=== PATIENT | female | born 1980 | race Caucasian/White ===

== ENCOUNTER 2020-04-30 06:36 | Emergency (ER) | payer BC, OTHER ==
[~2020-04-30] VITALS: Ht 149.9 cm; Wt 83.0 kg
[2020-04-30] MEDS ORDERED: SODIUM CHLORIDE 0.9% 1000ML 1,000 ML IV STA (06:53)
[2020-04-30] MEDS ORDERED: MORPHINE SULFATE 2 MG/ML SYR 1ML IV STA (06:53)
[2020-04-30] MEDS ORDERED: ONDANSETRON HCL INJ 2MG/ML 2ML 2 MG/ML VIAL IV STA (06:53)
[2020-04-30 07:06] LABS: BASOPHILS % 0.3 % (0.0-1.0); EOSINOPHILS % 0.1 % (0.0-6.0); HEMATOCRIT 42.5 % (34.2-44.1); HEMOGLOBIN 13.7 g/dL (12.0-16.0); LYMPHOCYTES # (AUTO) 1.3 (1.0-3.2); MEAN CORPUSCULAR HEMOGLOBIN 28.8 pg (28-32); MEAN CORPUSCULAR HGB CONC 32.2 g/dL (31-35); MEAN CORPUSCULAR VOLUME 89.3 fL (81-99); MONOCYTES # (AUTO) 0.5 (0.2-0.8); NEUTROPHILS # (AUTO) 8.1 (2.1-6.9); NEUTROPHILS % 81.2 % (38.7-80.0); PLATELET COUNT 260 x10e3/uL (140-360); RED BLOOD COUNT 4.76 x10e6/uL (3.6-5.1); RED CELL DISTRIBUTION WIDTH 12.9 % (11.7-14.4)
--- OUTSIDE RECORDS SUMMARY | 2020-04-30 07:10 | XMS REPORT | Encounter Summary ---
Author Organization Unknown Address [address] [place] [address] Phone [phone] Care Team Providers Care Military Technician Name Role Phone Dr. Gladys Finnegan 3 [phone] Reason for Visit Annual physical - female Instructions 1. Adult health examination lipid panel, serum CMP, serum or plasma CBC w/ auto diff 2. Immunization Adacel (Tdap Adolesn/Adult)(PF)2 Lf-(2 .5-5-3-5)-5 Lf/0.5 mL IM syringe 3. Body mass index 30+ - obesity body mass index: care instructions learning about healthy weight 4. Mild recurrent major depression Trintellix 5 mg tablet Discussion Note: None recorded. Plan of Care Reminders Provider Appointments Return to Office on or around 04/26/2020 Gladys Finnegan MD Lab Lipid Panel, Serum 03/27/2020 [facility] Medic [facility] - Laboratory CMP, Serum or Plasma 03/27/2020 [facility] Med ical - Laboratory CBC W/ Auto Diff 03/27/2020 [facility] Medical - Laboratory Referral None recorded. Procedures None recorded. Surgeries None recorded. Imaging None recorded. Medications Name Start Date amitriptyline 25 mg tablet Take 1 tablet every day by oral route. gabapentin 300 mg capsule Take 1 capsule 3 times a day by oral route. Premarin 0.625 mg daily Qsymia 3.75 mg-23 mg capsule, extended r elease TAKE 1 CAPSULE BY MOUTH EVERY DAY sumatriptan 25 mg tablet take 1 tablet for migraine once a day. may take 2nd tablet if still hurting after 2 hours tramadol 50 mg tablet every 6 hours by oral route. 09/19/2017 Trintellix 5 mg tablet Take 1 tablet every day by oral route. Medications Administered None recorded. Vitals Height Weight BMI Blood Pressure 4 ft 11 in 189.4 lbs 38.3 kg/m2 116/72 mm[Hg] Results Lab Results None recorded. Allergies Code Code System Name Reaction Severity Status Onset RxNorm Azithromycin Active Penicillins Active 73249 RxNorm Tizanidine Active Problems Name Status Onset Date Source Nerve Root Disorder Active External Ankle Pain Active External Plantar Fasciitis Active External Osteochondritis Dissecans of the Talus Active External Sprain of Ankle Active External Sprain of Calcaneofibular Ligament Active External Right Tarsal Tunnel Syndrome Active Ext ernal Procedures Date Name Performed by 09/29/2018 Orthopedic Surgery Information not avai lable 09/29/2014 Hysterectomy (Total) Information not holland ilable 09/29/2014 Tubal Ligation Information not avai lable 09/29/2008 Caesarean Section Information not avai lable 09/29/2006 Caesarean Section Information not avai lable Colonoscopy Information not avai lable Vaccine List Vaccine Type Tdap 03/27/20200.5 mL Social History Tobacco Smoking Status Never Smoker Past Encounters 03/27/2020 Adult Health Examination; Immunization; Body Mass Index 30+ - Obesity; Mild Recurrent Major Depression Gladys Finnegan MD: [address] [facility] , [address], [place] [address], Ph. History of Present Illness Note:here for <div>
</div><div>WWE - hysterectomy

mammogram - UTD
< br>last eye < 1 yr

last dental < 1 yr

last Tdap - need
< br>exercise- regular

diet- careful- less red meat, more veggies/fish
< br>feeling more depressed lately - cannot tolerate higher dose of elavil. phq 9 answered and reviewed </div> Review of Systems Comprehensive General Adult ROS Reported By: Patient Constitutional: Constitutional: no fever, no significant weight gain, no significant weight loss Cardiovascular: Cardiovascular: no chest roman n, no shortness of breath when walking, no palpitations, no lightheadedness Respiratory: Respiratory: no cough, no wh eezing, no shortness of breath Genitourinary: Genitourinary: no incontinen ce, no difficulty urinating; vaginal dryness, pelvic pain Musculoskeletal: Musculoskeletal: no muscle a ches, no muscle weakness, no arthralgias/joint pain Integumentary: Skin: no abnormal mole, no j aundice, no rashes Neurologic: Neurologic: no weakness, no numbness, no dizziness, no headaches Psychiatric: Psych: no anxiety, depressio n, sleep disturbances Allergic/Immunologic: Allergy/Immunologic: no runn y nose, no sinus pressure, no itching, no hives, no frequent sneezing Physical Exam General Adult Exam (Female) Reported By: Patient Constitutional: General Appearance: healthy- appearing, well-nourished, well-developed Psychiatric: Insight: good judgement. Men yoni Status: active and alert. Orientation: to time, to place, to person. Memory: recent memory normal, remote memory normal Head: Head: normocephalic, atrauma tic Eyes: Lids and Conjunctivae: no di scharge. Pupils: PERRLA. Corneas: grossly intact. EOM: EOMI. Sclerae: non-icteric ENMT: Ears: no lesions on external ear. Hearing: no hearing loss. Nose: no lesions on external nose, nares patent. Lips, Teeth, and Gums: no mouth or lip ulcers. Oropharynx: moist mucous membranes Neck: Neck: supple, trachea midlin e. Thyroid: no enlargement Lungs: Respiratory effort: no dyspn ea. Auscultation: breath sounds normal Cardiovascular: Heart Auscultation: RRR, nor mal S1, normal S2, no murmurs. Pulses including femoral / pedal: normal throughout Abdomen: Bowel Sounds: normal. Inspec tion and Palpation: soft, non-distended, no tenderness Musculoskeletal:: Motor Strength and Tone: nor mal motor strength, normal tone. Joints, Bones, and Muscles: normal movement of all extremities Neurologic: Gait and Station: normal gai t. Cranial Nerves: grossly intact. Sensation: grossly intact Skin: Inspection and palpation: no rash, no lesions
--- OUTSIDE RECORDS SUMMARY | 2020-04-30 07:10 | XMS REPORT | Summary of Care ---
Author Author [facility] Address [address] [place] [address] Phone Unavailable Care Team Providers Care Superintendent Radio Communications Name Role Phone PERRY KELLY M.D. Unavailable Unavailable Perry Kelly MD Unavailable Unavailable Unavailable Unavailable Functional Status Name Dates Details Functional status health issues are not documented Status: Name Dates Details Cognitive status health issues are not d ocumented Status: Problems Name Dates Details Osteochondritis dissecans of right talus (732.7, M93.271) Status: Active Right ankle pain (719.47, M25.571) Status: Active Plantar fasciitis, right (728.71, M72.2) Status: Active Tarsal tunnel syndrome of right side (35 5.5, G57.51) Status: Active Sprain of calcaneofibular ligament of ri ght ankle, initial encounter (845.02, S93.411A) Status: Active Sprain of anterior talofibular ligament of right ankle, initial encounter (845.09, S93.491A) Status: Active Medications Name Dates Details Meloxicam 15 MG Oral Tablet TAKE 1 TABLET DAILY. Quantity: 30 GAUVAIN M.D., PERRY * Start : 28-Jul-2017 Active Cephalexin 500 MG Oral Capsule TAKE 1 CAPSULE 3 TIMES DAILY UNTIL GONE. * Quantity: 15 Refills: 0 GAUVAIN Emelia.Joan., PERRY * Start : 28-Oct-2018 Active traMADol HCl - 50 MG Oral Tablet TAKE 2 TABLETS EVERY 6 HOURS. * Quantity: 60 Refills: 1 GAUVAIN M.D., PERRY * Start : 28-Oct-2018 Active Ondansetron HCl - 8 MG Oral Tablet TAKE 1 TABLET EVERY 8 HOURS * Quantity: 15 Refills: 0 GAUVAIN M.D., PERRY * Start : 28-Oct-2018 Active Meloxicam 15 MG Oral Tablet TAKE 1 TABLET DAILY. * Quantity: 30 Refills: 2 GAUVAIN M.D., PERRY * Start : 16-Aug-2019 Active traMADol HCl - 50 MG Oral Tablet TAKE 2 TABLETS EVERY 6 HOURS. * Quantity: 60 Refills: 1 PERRY KELLY M.D. * Start : 19-Sep-2017 Active Meloxicam 15 MG Oral Tablet TAKE 1 TABLET DAILY. * Quantity: 30 Refills: 1 ABIGAIL Lewis PERRY * Start : 19-Sep-2017 Active Allergies and Adverse Reactions Name Dates Details Penicillins (Allergy) Status: Active Procedures Procedure Dates Details Procedures not documented Immunization Name Dates Details Immunizations not documented Social History Name Dates Details Unknown if ever smoked Vital Signs Date Test Result Details No Known Vitals to report Results Date Description Value Details Results not documented Plan of Care Name Dates Details Planned Observations Planned Goals not documented Planned Encounters Appointment; PERRY KELLY M.D. On: 15-Oct-2019 9:15 Instructions Name Dates Details Instructions not documented Encounters Appointment; PERRY KELLY M.D. Encounter Diagnosis: Problem not documented On: 21-Nov-2017 10:45 Appointment; PERRY KELLY M.D. Encounter Diagnosis: Problem not documented On: 19-Dec-2017 10:30 Appointment; PERRY KELLY M.D. Encounter Diagnosis: Problem not documented On: 05-Oct-2018 9:15 Appointment; PERRY KELLY M.D. Encounter Diagnosis: Problem not documented On: 19-Oct-2018 10:15 Appointment; PERRY KELLY M.D. Encounter Diagnosis: Problem not documented On: 29-Oct-2018 9:00 Appointment; PERRY KELLY M.D. Encounter Diagnosis: Problem not documented On: 13-Nov-2018 10:45 Appointment; PERRY KELLY M.D. Encounter Diagnosis: Problem not documented On: 04-Dec-2018 14:45 Appointment; PERRY KELLY M.D. Encounter Diagnosis: Problem not documented On: 01-Jan-2019 10:00 Appointment; PERRY KELLY M.D. Encounter Diagnosis: Problem not documented On: 31-Mar-2019 14:15 Appointment; PERRY KELLY M.D. Encounter Diagnosis: Problem not documented On: 02-Aug-2019 8:45 Appointment; PERRY KELLY M.D. Encounter Diagnosis: Problem not documented On: 16-Aug-2019 8:45 Appointment; PERRY KELLY M.D. Encounter Diagnosis: Problem not documented On: 27-Sep-2019 8:30
--- OUTSIDE RECORDS SUMMARY | 2020-04-30 07:10 | XMS REPORT | Encounter Summary ---
Author Organization Unknown Address [address] [place] [address] Phone [phone] Care Team Providers Care License And Permit Specialist Name Role Phone Dr. Gladys Finnegan 3 [phone] Reason for Visit Left breast problems; Telemedicine Visit Instructions 1. Lump in left breast US, breast, unilateral MAMMO, diagnostic, digital, bilateral 2. Chronic pelvic pain of female amitriptyline 50 mg tablet gabapentin 300 mg capsule 3. Migraine sumatriptan 25 mg tablet 4. Morbid obesity Discussion Note: None recorded. Patient educational handouts: No information available. Plan of Care Reminders Provider Appointments Est CPX 03/27/2020 7:30AM Gladys persaud MD Lab None recorded. Referral None recorded. Procedures None recorded. Surgeries None recorded. Imaging US, Breast, Unilateral 02/24/2020 [facility] MAMMO, Diagnostic, Digital, Bilateral 02/24/2020 [facility] Medications Name Start Date amitriptyline 25mg qhs amitriptyline 50 mg tablet Take 1 tablet every day by oral route. gabapentin 100mg tid gabapentin 300 mg capsule Take 1 capsule 3 times a day by oral route. Premarin 0.625 mg daily Qsymia 3.75 mg-23 mg capsule, extended r elease TAKE 1 CAPSULE BY MOUTH EVERY DAY sumatriptan 25 mg tablet take 1 tablet for migraine once a day. may take 2nd tablet if still hurting after 2 hours tramadol prn Medications Administered None recorded. Vitals Height 4 ft 11 in Results Lab Results None recorded. Allergies Code Code System Name Reaction Severity Status Onset 43433 RxNorm Azithromycin Active Penicillins Active 98740 RxNorm Tizanidine Active Problems None recorded. Procedures Date Name Performed by 09/29/2018 Orthopedic Surgery Information not avai lable 09/29/2014 Hysterectomy (Total) Information not holland ilable 09/29/2014 Tubal Ligation Information not avai lable 09/29/2008 Caesarean Section Information not avai lable 09/29/2006 Caesarean Section Information not avai lable Colonoscopy Information not avai lable 02/24/2020 US, Breast, Unilateral [facility] [address] [place] [address] (Work Place) 02/24/2020 MAMMO, Diagnostic, Digital, Bilateral [facility] [address] [place] [address] (Work Place) Vaccine List None recorded. Social History Tobacco Smoking Status Never Smoker Past Encounters 02/24/2020 Lump in Left Breast; Chronic Pelvic Pain of Female; Migraine; Morbid Obesity Gladys Finnegan MD: [address], [address], [place] [address], Ph. History of Present Illness Breast Pain Reported By: Patient HPI: Location: left. Onset/Timing : 1-2 weeks. Duration: constant. Quality: throbbing. Severity: moderate. Context: family history of breast cancer; fathers mother. Modifying Factors: touch. Associated Symptoms: no fever, no chills, no skin redness, no nipple discharge, no arm swelling, no chest pain, sore nipples, arm pain, breast lump Notes: she is on HRT after hysterec vipul and oophorectomy 5 yrs ago Note:I confirm that I received verbal consent from the patient for the virtual visit.
This telemedicine encounter was performed using live {{video and audio*|audio only}}.
<b>(for audio only)</b> Total time spent with patient: {{ }} minutes.

<div>1. she has a hx of chronic pelvic pain after she had total hysterectomy and salphingo ophorectomy. i started her on gabapentin and elavil and it has help. she needs refill of med
</div><div>
</div><div>2. she has a hx of migraines and has had 4-5 episodes in the past 2 months. she has some stress from school. elavil and imitrex has helped</div><div>
</div><div> 3. i started her on qsymia for weight loss - she has not weighed herself and bec of her foot pain has not exercised much. just started med recently but feels go od and has not side effects
</div> Review of Systems Comprehensive General Adult [...] no hives, no frequent sneezing Physical Exam Telemedicine/Virtual Visit Reported By: Patient"
--- OUTSIDE RECORDS SUMMARY | 2020-04-30 07:10 | XMS REPORT | Encounter Summary ---
Author Organization Unknown Address [address] [place] [address] Phone [phone] Care Team Providers Care Frame Straightener Name Role Phone Dr. Gladys Finnegan 3 [phone] Reason for Visit headaches Instructions 1. Chronic pelvic pain of female gabapentin 300 mg capsule amitriptyline 50 mg tablet 2. Migraine sumatriptan 25 mg tablet 3. Body mass index 30+ - obesity body mass index: care instructions learning about healthy weight Qsymia 3.75 mg-23 mg capsule, extended release 4. Moderate recurrent major depression depression treatment: care instruction s recovering from depression: care instr uctions 5. Vaginal dryness estradiol 0.01% (0.1 mg/gram) vaginal cream Discussion Note: None recorded. Plan of Care Reminders Provider Appointments Est CPX 01/10/2020 8:15AM Gladys persaud MD Return to Office on or around 01/13/2020 Gladys Finnegan MD Lab None recorded. Referral None recorded. Procedures None recorded. Surgeries None recorded. Imaging None recorded. Medications Name Start Date amitriptyline 25mg qhs amitriptyline 50 mg tablet Take 1 tablet every day by oral route. diclofenac sodium dr 75 mg tbec prn estradiol 0.01% (0.1 mg/gram) vaginal cr eam insert 1 gm per vagina 3x a wk at bedtime gabapentin 100mg tid gabapentin 300 mg capsule Take 1 capsule 3 times a day by oral route. Premarin Qsymia 3.75 mg-23 mg capsule, extended r elease Take 1 capsule every day by oral route. sumatriptan sumatriptan 25 mg tablet take 1 tablet for migraine once a day. may take 2nd tablet if still hurting after 2 hours tramadol prn Medications Administered None recorded. Vitals Height Weight BMI Blood Pressure 4 ft 11 in 189 lbs 38.2 kg/m2 119/79 mm[Hg] Results Lab Results None recorded. Allergies Code Code System Name Reaction Severity Status Onset 82308 RxNorm Azithromycin Active Penicillins Active 00577 RxNorm Tizanidine Active Problems None recorded. Procedures Date Name Performed by 09/29/2018 Orthopedic Surgery Information not avai lable 09/29/2014 Hysterectomy (Partial) Information not a vailable 09/29/2014 Tubal Ligation Information not avai lable 09/29/2008 Caesarean Section Information not avai lable 09/29/2006 Caesarean Section Information not avai lable Vaccine List None recorded. Social History Tobacco Smoking Status Never Smoker Past Encounters 12/13/2019 Chronic Pelvic Pain of Female; Migraine; Body Mass Index 30+ - Obesity; Moderate Recurrent Major Depression; Vaginal Dryness Gladys Finnegan MD: [address] [place] [address] , [address], [place] [address], Ph. History of Present Illness Note:here as a new patient but my old patient from my previous practice<div>
</div><div>1. she has a hx of chronic pelvic pain after she had total hysterectomy and salphingo ophorectomy. i started her on gabapentin and elavil and it has help. he saw a educational resource center teacher since last time i saw her and they told her she has some pelvic wall dysfunction. no records available. </div><div>
</div>< div>2. she has a hx of migraines and dr. morales gave her imitrex and it helped. she needs a refill. she has been getting them more frequently now too bec of stress at home</div><div>
</div><div>3. her depression is worse. she has foot surgery and still hurting and her works out of town. she is on elavil but still not sleeping well. phq 9 reviewed </div><div>
</div><div>4. since her hysterectomy and ovary removal - she has been on premarin but still experiencing vaginal dryness. she is UTD with her [employer]/pelvic exam</div><div>
</div><div>5. i started her on phentermine for weight loss - she was lost to f/up due to insurance. she wants to try it again but wants to try qsymia. she tried to watch what she is eating but not much exercise</div> Review of Systems Comprehensive General Adult ROS [...] Memory: recent memory normal, remote memory normal Neck: Neck: supple, trachea midlin e. Thyroid: no enlargement Lungs: Respiratory effort: no dyspn ea. Auscultation: breath sounds normal Cardiovascular: Heart Auscultation: RRR, nor mal S1, normal S2, no murmurs. Pulses including femoral / pedal: normal throughout Musculoskeletal:: Motor Strength and Tone: nor mal motor strength, normal tone. Joints, Bones, and Muscles: normal movement of all extremities Neurologic: Gait and Station: normal gai t. Cranial Nerves: grossly intact. Sensation: grossly intact Skin: Inspection and palpation: no rash, no lesions
--- OUTSIDE RECORDS SUMMARY | 2020-04-30 07:10 | XMS REPORT | Summary of Care ---
Author Author [facility] Address [address] [place] [address] Phone Unavailable Care Team Providers Care Tool Drawing Checker Name Role Phone PERRY KELLY M.D. Unavailable Unavailable Perry Kelly MD Unavailable Unavailable Unavailable Unavailable Functional Status Name Dates Details Functional status health issues are not documented Status: Name Dates Details Cognitive status health issues are not d ocumented Status: Problems Name Dates Details Sprain of anterior talofibular ligament of right ankle, initial encounter (845.09, S93.491A) Status: Active Sprain of calcaneofibular ligament of ri ght ankle, initial encounter (845.02, S93.411A) Status: Active Osteochondritis dissecans of right talus (732.7, M93.271) Status: Active Right ankle pain (719.47, M25.571) Status: Active Plantar fasciitis, right (728.71, M72.2) Status: Active Tarsal tunnel syndrome of right side (35 5.5, G57.51) Status: Active Radiculopathy (729.2, M54.10) Status: Active Medications Name Dates Details Meloxicam 15 MG Oral Tablet TAKE 1 TABLET DAILY. Quantity: 30 GAUVAIN M.D., PERRY * Start : 28-Jul-2017 Active Meloxicam 15 MG Oral Tablet TAKE 1 TABLET DAILY. * Quantity: 30 Refills: 1 GAUVAIN M.D., PERRY * Start : 19-Sep-2017 Active traMADol HCl - 50 MG Oral Tablet TAKE 2 TABLETS EVERY 6 HOURS. * Quantity: 60 Refills: 1 GAUVAIN M.D., PERRY * Start : 19-Sep-2017 Active Meloxicam 15 MG Oral Tablet TAKE 1 TABLET DAILY. * Quantity: 30 Refills: 2 GAUVAIN M.D., PERRY * Start : 16-Aug-2019 Active Ondansetron HCl - 8 MG Oral Tablet TAKE 1 TABLET EVERY 8 HOURS * Quantity: 15 Refills: 0 GAUVAIN M.D.KRISTAPERRY * Start : 28-Oct-2018 Active traMADol HCl - 50 MG Oral Tablet TAKE 2 TABLETS EVERY 6 HOURS. * Quantity: 60 Refills: 1 ABIGAIL LewisKRISTAPERRY * Start : 28-Oct-2018 Active Cephalexin 500 MG Oral Capsule TAKE 1 CAPSULE 3 TIMES DAILY UNTIL GONE. * Quantity: 15 Refills: 0 ABIGAIL LewisKRISTAPERRY * Start : 28-Oct-2018 Active Allergies and Adverse Reactions Name Dates Details Penicillins (Allergy) Status: Active Procedures Procedure Dates Details Procedures not documented Immunization Name Dates Details Immunizations not documented Social History Name Dates Details Tobacco smoking consumption unknown (finding) Vital Signs Date Test Result Details No Known Vitals to report Results Date Description Value Details Results not documented Plan of Care Name Dates Details Planned Observations Planned Goals not documented Instructions Name Dates Details Instructions not documented [...] Diagnosis: Problem not documented On: 27-Sep-2019 8:30 Appointment; PERRY KELLY M.D. Encounter Diagnosis: Problem not documented On: 20-Oct-2019 8:30
--- OUTSIDE RECORDS SUMMARY | 2020-04-30 07:10 | XMS REPORT | Summary of Care ---
Author Author ABIGAIL Lewis, CLAUDE GOEL Organization Unknown Address Unknown Phone Unavailable Care Team Providers Care Braid Folder Name Role Phone PERRY KELLY M.D. Unavailable [...] M.D., PERRY * Start : 19-Sep-2017 Active Cephalexin 500 MG Oral Capsule TAKE 1 CAPSULE 3 TIMES DAILY UNTIL GONE. * Quantity: 15 Refills: 0 GAUVAIN M.D., PERRY * Start : 28-Oct-2018 Active traMADol HCl - 50 MG Oral Tablet TAKE 2 TABLETS EVERY 6 HOURS. * Quantity: 60 Refills: 1 GAUVAIN M.D.PERRY * Start : 28-Oct-2018 Active Ondansetron HCl - 8 MG Oral Tablet TAKE 1 TABLET EVERY 8 HOURS * Quantity: 15 Refills: 0 ABIGAIL LewisPERRY * Start : 28-Oct-2018 Active Meloxicam 15 MG Oral Tablet TAKE 1 TABLET DAILY. * Quantity: 30 Refills: 2 ABIGAIL LewisPERRY * Start : 16-Aug-2019 Active Allergies and Adverse Reactions Name Dates [...] Observations Planned Goals not documented Planned Encounters Sql Database Programmer Interventions Provided Medication Changes* Meloxicam 15 MG Oral Tablet - Start Instructions Name Dates Details Instructions not documented [...]
--- OUTSIDE RECORDS SUMMARY | 2020-04-30 07:10 | XMS REPORT | Continuity of Care Document ---
Author Author 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 [facility] Ankle pain Ankle Pain Problem Active [facility] Plantar fasciitis Plantar Fasciitis Problem Active [facility] Osteochondritis dissecans of the talus Osteochondritis Disse cans of the Talus Problem Active [facility] Sprain of ankle Sprain of Ankle Problem Active [facility] Sprain of calcaneofibular ligament Sprain of Calcaneofibular Lig ament Problem Active [facility] Right tarsal tunnel syndrome Right Tarsal Tunnel Syndrome Problem Active [facility] Sprain of anterior talofibular ligament of right ankle , initial encounter Sprain of anterior talofibular ligament of right ankle, initial encounter Problem Active [facility] Sprain of calcaneofibular ligament of right ankle, ini tial encounter Sprain of calcaneofibular ligament of right ankle, initial encounter Problem Active [facility] Osteochondritis dissecans of right talus Osteochondrit is dissecans of right talus Problem Active [facility] Right ankle pain Right ankle pain Problem Active [facility] Plantar fasciitis, right Plantar fasciitis, right Problem Active [facility] Tarsal tunnel syndrome of right side Tarsal tunnel syndrome of right side Problem Active [facility] Radiculopathy Radiculopathy Problem Active [facility] Allergies, Adverse Reactions, Alerts Allergy Name Allergy Type Status Severity Reaction(s) Onset Date Inacti ve Date Treating Clinician Comments Source Penicillins DA Active [place] 2016-04-04 00:00:00 [facility] azithromycin DA Active [place] 2016-04-04 00:00:00 [facility] tizanidine DA Active [place] 2016-04-04 00:00:00 [facility] Azithromycin Allergy to substance Active [facility] PENICILLINS Allergy to substance Active [facility] Tizanidine Allergy to substance Active [facility] Penicillins Allergy to drug (finding) Active [facility] Social History Smoking Status Start Date Stop Date Source Never Smoker [facility] ractice Medications Ordered Medication Name Filled Medication Name Start Date Stop Da te Current Medication? Ordering Clinician Indication Dosage Frequency Signature (SIG) Comments Components Source Meloxicam 15 MG Oral Tablet Meloxicam 15 MG Oral Tablet 2019-08-16 00:00:00 Yes RUKHSANA HAYES M.D. 1 QD TAKE 1 TABLET DAILY. [facility] Cephalexin 500 MG Oral Capsule Cephalexin 500 MG Oral Capsul e 2018-10-28 00:00:00 Yes RUKHSANA HAYES M.D. Q0.3333D TAKE 1 CAPSULE 3 TIMES DAILY UNTIL GONE. [facility] traMADol HCl - 50 MG Oral Tablet traMADol HCl - 50 MG Oral T ablet 2018-10-28 00:00:00 Yes RUKHSANA HAYES M.D. Q6H TAKE 2 TABLETS EVERY 6 HOURS. [facility] Ondansetron HCl - 8 MG Oral Tablet Ondansetron HCl - 8 MG Or al Tablet 2018-10-28 00:00:00 Yes RUKHSANA HAYES M.D. 1 Q8H TAKE 1 TABLET E VERY 8 HOURS [facility] tramadol 50 mg tablet every 6 hours by oral route. tr amadol 50 mg tablet every 6 hours by oral route. 2017-09-19 00:00:00 No Q6H tramadol 50 mg tablet every 6 hours by oral route. [facility] Meloxicam 15 MG Oral Tablet Meloxicam 15 MG Oral Tablet 2017-09-19 00:00:00 Yes RUKHSANA HAYES M.D. 1 QD TAKE 1 TABLET DAILY. [facility] traMADol HCl - 50 MG Oral Tablet traMADol HCl - 50 MG Oral T ablet 2017-09-19 00:00:00 Yes RUKHSANA HAYES M.D. Q6H TAKE 2 TABLETS EVERY 6 HOURS. [facility] Meloxicam 15 MG Oral Tablet Meloxicam 15 MG Oral Tablet 2017-07-28 00:00:00 Yes RUKHSANA HAYES M.D. 1 QD TAKE 1 TABLET DAILY. [facility] amitriptyline 25 mg tablet Take 1 tablet every day by oral route. amitriptyline 25 mg tablet Take 1 tablet every day by oral route. No 1 Q1D amitriptyline 25 mg tablet Take 1 tablet every day by oral route. [facility] gabapentin 300 mg capsule Take 1 capsule 3 times a day by oral route. gabapentin 300 mg capsule Take 1 capsule 3 times a day by oral route. No gabapentin 300 mg capsule Take 1 capsule 3 times a day by oral route. [facility] Premarin 0.625 mg daily Premarin 0.625 mg daily No Premarin 0.[address] [facility] Qsymia 3.75 mg-23 mg capsule, extended r elease TAKE 1 CAPSULE BY MOUTH EVERY DAY Qsymia 3.75 mg-23 mg capsule, extended r elease TAKE 1 CAPSULE BY MOUTH EVERY DAY No Qsymia 3.75 mg-2 3 mg capsule, extended release TAKE 1 CAPSULE BY MOUTH EVERY DAY [facility] ice sumatriptan 25 mg tablet take 1 tablet f or migraine once a day. may take 2nd tablet if still hurting after 2 hours sumatriptan 25 mg tablet take 1 tablet f or migraine once a day. may take 2nd tablet if still hurting after 2 hours No sumatriptan 25 m g tablet take 1 tablet for migraine once a day. may take 2nd tablet if still hurting after 2 hours [facility] Trintellix 5 mg tablet Take 1 tablet every day by oral route. Trintellix 5 mg tablet Take 1 tablet every day by oral route. No 1 Q1D Trintellix 5 mg tablet Take 1 tablet every day by oral route. [facility] Immunizations Ordered Immunization Name Filled Immunization Name Date Status Comments Source Tdap Tdap 2020-03-27 09:19:42 Completed [facility] Vital Signs Vital Name Observation Time Observation Value Comments Source BP Diastolic 2020-03-27 00:00:00 72 mm[Hg] [facility] Height 2020-03-27 00:00:00 59 [in_i] [facility] BMI (Body Mass Index) 2020-03-27 00:00:00 38.3 kg/m2 [facility] BP Systolic 2020-03-27 00:00:00 116 mm[Hg] [facility] Body Weight 2020-03-27 00:00:00 189.4 [lb_av] [facility] Height 2020-02-24 00:00:00 59 [in_i] [facility] BP Diastolic 2019-12-13 00:00:00 79 mm[Hg] [facility] Height 2019-12-13 00:00:00 59 [in_i] [facility] BMI (Body Mass Index) 2019-12-13 00:00:00 38.2 kg/m2 [facility] BP Systolic 2019-12-13 00:00:00 119 mm[Hg] [facility] Body Weight 2019-12-13 00:00:00 189 [lb_av] [facility] Procedures Procedure Date / Time Performed Performing Clinician [facility] e US, breast, unilateral 2020-02-24 00:00:00 [facility] MAMMO, diagnostic, digital, bilateral 2020-02-24 00:00:00 [facility] MR Ankle wo contrast [id number] 2019-08-02 00[facility] Promis 29 Survey 2018-12-03 00:00:00 [facility] [U] XRAY ANKLE MIN 3 VWS RIGHT [id number] 2018-11-12 00:00:00 [facility] MR Ankle wo contrast [id number] 2018-10-05 00:00[facility]00 [facility] 2018-09-29 00:00:00 [facility] [U] XRAY ANKLE MIN 3 VWS RIGHT [id number] 2017-11-21 00:00:00 [facility] MR Ankle wo contrast [id number] 2017-08-18 00:00[facility]00 [facility] Hysterectomy (Partial) 2014-09-29 00:00:00 [facility] Tubal Ligation 2014-09-29 00:00:00 [facility] Hysterectomy (Total) 2014-09-29 00:00:00 [facility] Caesarean Section 2008-09-29 00:00:00 [facility] Caesarean Section 2006-09-29 00:00:00 [facility] Colonoscopy [facility] racjayne Plan of Care Planned Activity Planned Date Details Comments Source Diagnostic Test Pending 2020-03-27 00:00:00 lipid panel, ser um [code = lipid panel, serum] [facility] Diagnostic Test Pending 2020-03-27 00:00:00 CMP, serum or pl asma [code = CMP, serum or plasma] [facility] Diagnostic Test Pending 2020-03-27 00:00:00 CBC w/ auto diff [code = CBC w/ auto diff] [facility] Encounters Start Date/Time End Date/Time Encounter [facility] ID Source 2020-03-27 00:00:00 2020-03-27 00:00:00 Gladys degroot MD: [address], [address], [place] [address], Ph. [facility] - VM_JOSE Lucas ([facility]) [id number] [facility] 2020-02-24 00:00:00 2020-02-24 00:00:00 Gladys degroot MD: [facility] [address], [address], [place] [address], Ph. [facility] - VM_PUSHPAU_Aleshia Lucas ([facility]) [id number] [facility] 2019-12-13 00:00:00 2019-12-13 00:00:00 Gladys degroot MD: [address], [address], [place] [address], Ph. [facility] - VM_HOU_NSesar Lucas ([facility]) [id number] [facility] 2019-10-20 08:30:00 2019-10-20 08:30:00 Appointment; MORALES HAYES M.D. GAUVAIN, TAGGART, M.D. [facility] [id number] [facility] 2019-09-27 08:30:00 2019-09-27 08:30:00 Appointment; MORALES HAYES M.D. GAUVAIN, TAGGART, M.D. [facility] [id number] [facility] 2019-08-16 08:45:00 2019-08-16 08:45:00 Appointment; MORALES HAYES M.D. GAUVAIN, TAGGART, M.D. [facility] [id number] [facility] 2019-08-02 08:45:00 2019-08-02 08:45:00 Appointment; MORALES HAYES M.D. GAUVAIN, TAGGART, M.D. [facility] [id number] [facility] 2019-03-31 14:15:00 2019-03-31 14:15:00 Appointment; MORALES HAYES M.D. GAUVAIN, TAGGART, M.D. [facility] [id number] [facility] 2019-01-01 10:00:00 2019-01-01 10:00:00 Appointment; MORALES HAYES M.D. GAUVAIN, TAGGART, M.D. [facility] Orthopedics [facility] [id number] [facility] 2018-12-04 14:45:00 2018-12-04 14:45:00 Appointment; MORALES HAYES M.D. GAUVAIN, TAGGART, M.D. [facility] [id number] [facility] 2018-11-13 10:45:00 2018-11-13 10:45:00 Appointment; MORALES HAYES M.D. GAUVAIN, TAGGART, M.D. [facility] [id number] [facility] 2018-10-29 09:00:00 2018-10-29 09:00:00 Appointment; GAUVAIN, TAGDebbie HARDEN TAGGART, M.D. [facility] [place] [id number] [facility] 2018-10-19 10:15:00 2018-10-19 10:15:00 Appointment; MORALES HAYES M.D. GAUVAIN, TAGGART, M.D. [facility] [id number] [facility] 2018-10-05 09:15:00 2018-10-05 09:15:00 Appointment; MORALES HAYES M.D. GAUVAIN, TAGGART, M.D. [facility] [place] [id number] [facility] 2017-12-19 10:30:00 2017-12-19 10:30:00 Appointment; MORALES HAYES M.D. GAUVAIN, TAGGART, M.D. [facility] [id number] [facility] 2017-11-21 10:45:00 2017-11-21 10:45:00 Appointment; MORALES HAYES M.D. GAUVAIN, TAGGART, M.D. [facility] [place] [id number] [facility] 2017-10-06 09:45:00 2017-10-06 09:45:00 Appointment; MORALES HAYES M.D. GAUVAIN, TAGGART, M.D. [facility] [id number] [facility] 2017-09-19 11:00:00 2017-09-19 11:00:00 Appointment; MORALES HAYES M.D. GAUVAIN, TAGGART, M.D. [facility] [place] [id number] [facility] 2017-09-01 09:45:00 2017-09-01 09:45:00 Appointment; MORALES HAYES M.D. GAUVAIN, TAGGART, M.D. [facility] [id number] [facility] 2017-08-18 08:45:00 2017-08-18 08:45:00 Appointment; MORALES HAYES M.D. GAUVAIN, TAGGART, M.D. [facility] [id number] [facility] 2017-07-28 08:45:00 2017-07-28 08:45:00 Appointment; MORALES HAYES M.D. GAUVAIN, TAGGART, M.D. [facility] [id number] [facility] 2017-07-04 08:30:00 2017-07-04 08:30:00 Appointment; MORALES HAYES M.D. GAUVAIN, TAGGART, M.D. [facility] [id number] [facility] Results Test Description Test Time Test Comments Results Result Comments Source DIAG MAMM BILATERAL CARLA CAD DIGITAL 2020-03-06 08:57:38 - DIAG MAMM BILATERAL CARLA CAD DIGITALBILATERAL FIRST EVER DIGITAL DIAGNOSTIC MAMMOGRAM 3D/2D WITH CAD: 03/06/2020CLINICAL: Palpable mass, left breast. Digital breast tomosynthesis was performed in addition to routine CC and MLO views. Current mammographic images were evaluated by either a [employer] M-Vu or a [employer] ImageChecker CAD (computer aided detection system). No prior exams were available for comparison. The tissue of both breasts is heterogeneously dense. This may lower the sensitivity of mammography. No suspicious mass, architectural distortion, malignant type calcification, or lymph node abnormality detected. INCOMPLETE: ADDITIONAL IMAGING EVALUATION NEEDEDBilateral ultrasound pending for additional evaluation. - BREAST ULTRASOUND BILATERALULTRASOUND OF BOTH BREASTS AND BOTH AXILLA: 03/06/2020No prior exams were available for comparison. Real-time ultrasound of both breasts and both axilla and clinical breast exam were performed. No abnormalities were seen sonographically in either breast or either axilla. Clinical breast exam was unremarkable.IMPRESSION: NEGATIVE There is no sonographic evidence of malignancy. Patient has been informed that she has areas of dense breast tissue that could make it difficult to find a small cancer. A screening mammogram and supplemental ultrasound for dense breast tissue is recommended in 1 year.Alicia Man M.D. dm/:03/06/2020 08:57:38 Physicist [place]: Ambreen GREEN, [facility]-FWletter sent: BIRADS 1-2 Combo FU Letter Mammogram BI-RADS: 0 Incomplete: Additional Imaging Evaluation Needed Ultrasound BI-RADS: 1 Negative BREAST ULTRASOUND BILATERAL 2020-03-06 08:57:38 - DIAG MAMM BILATERAL CARLA CAD DIGITALBILATERAL FIRST EVER DIGITAL DIAGNOSTIC MAMMOGRAM 3D/2D WITH CAD: 03/06/2020CLINICAL: Palpable mass, left breast. Digital breast tomosynthesis was performed in addition to routine CC and MLO views. Current mammographic images were evaluated by either a [employer] M-Vu or a [employer] Image[employer] CAD (computer aided detection system). No prior exams were available for comparison. The tissue of both breasts is heterogeneously dense. This may lower the sensitivity of mammography. No suspicious mass, architectural distortion, malignant type calcification, or lymph node abnormality detected. INCOMPLETE: ADDITIONAL IMAGING EVALUATION NEEDEDBilateral ultrasound pending for additional evaluation. - BREAST ULTRASOUND BILATERALULTRASOUND OF BOTH BREASTS AND BOTH AXILLA: 03/06/2020No prior exams were available for comparison. Real-time ultrasound of both breasts and both axilla and clinical breast exam were performed. No abnormalities were seen sonographically in either breast or either axilla. Clinical breast exam was unremarkable.IMPRESSION: NEGATIVE There is no sonographic evidence of malignancy. Patient has been informed that she has areas of dense breast tissue that could make it difficult to find a small cancer. A screening mammogram and supplemental ultrasound for dense breast tissue is recommended in 1 year.Alicia Man M.D. dm/:03/06/2020 08:57 :38 Physicist [place]: Ambreen GREEN, [facility] [place] [facility]-FWletter sent: BIRADS 1-2 Combo FU Letter Mammogram BI-RADS: 0 Incomplete: Additional Imaging Evaluation Needed Ultrasound BI-RADS: 1 Negative MR Ankle wo contrast [id number] 2019-08-06 09:37:00 P ROCEDURE INFORMATION:Exam: MR Right Lower Extremity Without Contrast; AnkleExam date and time: 08/06/2019 9:43 AMClinical history: 39 years old, female; Sprain of other ligament of rightankle, initial encounter; Additional info: /s93.491a sprain of other ligamentof right ankle, initial encounter Sprain of anterior talofibular ligament ofright ankle; sprain of calcaneofibular ligament of right ankle; 3 [id number] reports history of right ankle pain and mechanical symptoms forapproximately 1 month, history of right ankle cartilage surgery in September 2018TECHNIQUE:Imaging protocol: MR of the Right ankle without contrast.COMPARISON:ANKLE WO CONTRAST MRI, RIGHT 10/10/2018 11:52 AMANKLE WO CONTRAST MRI, RIGHT 08/30/2017 11:08:11 AMCR - ANKLE 3 VIEWS DX, RIGHT 06/27/2017 12:14:09 PMFINDINGS:Since the most recent prior MRI, the osteochondral lesion of the lateral talardome previously demonstrating appearance of subchondral marrow edema,sclerosis, and cystic change has significantly decreased in extent andintensity.The lesion now demonstrates only very mild subchondral sclerosis and edemasignal--and there is new mild articular cortex depression and irregularity(coronal series 4 images 24-27 and sagittal series 6, image 9). No evidence ofunstable osteochondral fragment. The overlying articular cartilage appearslikely slightly thinned but grossly intact. There is a small ankle jointeffusion.Thickening of the ATFL and CFL on the most recent prior MRI is again noted,mildly decreased. Findings compatible sequela of prior lateral ankle sprain.The distal tibiofibular syndesmotic ligaments and the medial deltoid collateralligament complex are normal.Aside from a small plantar calcaneal spur, there is no other osseousabnormality in the hindfoot. No arthritic changes. Normal subtalar joint.Normal tendons. No soft tissue mass or fluid collection.IMPRESSION:1. Further evolution of the lateral talar dome osteochondral lesion since themost recent prior MRI, now demonstrating only very mild subarticular marrowedema and sclerosis but now with new mild articular cortex depression.2. No evidence of unstable osteochondral fragment. Small ankle joint effusion.3. Lateral collateral ligament thickening again noted compatible with sequelaof prior lateral ankle sprain.Oscar Resendez MD On 08/06/2019 11:07:22; [id number]--Nnxi by: Oscar Resendez MDDictated Date/time: 08/06/19 11:07Electronically Signed by: Oscar Resendez MD 08/06/1911:07FINAL REPORT [facility] [U] XRAY ANKLE MIN 3 VWS RIGHT [id number] 2019-08-02 08:32:00 Images acquired, not reported on this accession number. [facility] [U] XRAY ANKLE MIN 3 VWS RIGHT [id number] 2019-01-01 10:10:00 Images acquired, not reported on this accession number. [facility] Post Op Promis 29 Survey 2018-12-29 16:00:47 Test Item Pain Interference: (test code = Pain Interference:) 60.3 1 N Pain Intensity: (test code = Pain Intensity:) 49.9 1 N Physical Function: (test code = Physical Function:) 34.6 1 N Satisfaction Role: (test code = Satisfaction Role:) 41.3 1 N [facility][U] XRAY ANKLE MIN 3 VWS RIGHT [id number] 10:12:00Images acquired, not reported on this accession number.[facility] Ankle wo contrast [id number] 11:40:00EXAMINATION: MR right ankle without contrastHISTORY: M25.571 Pain in right ankle and joints of right foot; anterior andlateral right ankle pain x 1 year status post fall; right talus osteochondrallesionCOMPARISON: Radiographs dated 06/27/2017 and prior MR dated 08/30/2017 arereviewed.TECHNIQUE: Multiplanar, multisequence magnetic resonance imaging of the rightankle and hindfoot is performed with an extremity coil without contrast.FINDINGS:Ligaments:Lateral:AITFL and PITFL: The anterior/inferior tibiofibular and posterior/inferiortibiofibular syndesmotic ligaments are intact.ATFL: The anterior talofibular ligament is mildly thicken ed, but intact.CFL: The calcaneofibular ligament is also mildly thickened, but i ntact.Medial:Deltoid complex: The superficial and deep components of the deltoid ligamentcomplex including the tibiospring ligament and superomedial component o f thecalcaneonavicular spring ligament are within normal limits. Tendons:Medial flexor: Fluid is noted within the posterior tibialis tendon sheathwithout intrat endinous abnormality. Otherwise, the remaining medial flexortendons are within n ormal limits.Peroneal: The lateral peroneal tendons are within normal limits.Ext ensor: The anterior ankle extensor tendons are within normal limits.Achilles ten don: The Achilles tendon is within normal limits.Plantar fascia: Within normal l imits with note made of a plantar calcanealspur.Muscles: There is normal signal intensity and muscle bulk of the intrinsic footmusculature.Cartilage and Bone: T here has been interval increase in size of anosteochondral lesion of the lateral talar dome, measuring 1.2 x 0.6 cm inanteroposterior and mediolateral dimension s respectively, previously measuring0.7 x 0.5 cm. There is associated overlying grade 2-3, deep partial thicknessto near full-thickness, chondrosis and underlyi ng subchondral cystic change,but there is no linear fluid signal along the base of the osteochondral lesionto suggest lesion instability. The remainder of the a rticular cartilage of theankle and visualized foot is within normal limits. The bone marrow signalintensity is otherwise normal without evidence of fracture or osteonecrosis. Soft tissue: There is no tibiotalar or subtalar joint effusion. There is normalfatty signal within the sinus Tarsi.IMPRESSION:1. Slight interval increase in size of an osteochondral lesion of the rightlateral talar dome with measurements as above with associated overlying grade2-3, deep partial thicknes s to near full-thickness, chondrosis and underlyingsubchondral cystic change, bu t there is no MR evidence specific for lesioninstability.2. Mildly thickened, bu t intact right ankle anterior talofibular andcalcaneofibular ligaments, likely r epresenting chronic sequelae of priorlow-grade ligamentous sprains.--Read by: Aldo Centeno MDDictated Date/time: 10/12/18 11:34Electronically Signed b y: Aldo Tate MD 10/12/1910:47FINAL REPORT [facility][U] XRAY ANKLE MIN 3 VWS RIGHT [id number] 09:36:00Images acquired, not reported on this accession number.[facility][U] XRAY ANKLE MIN 3 VWS RIGHT [id number] 11:02:00Images acquired, not reported on this accession number.[facility] Ankle wo contrast [id number] 10:04:00Exam: MRI of the right ankle without contrastReason for Exam: Pain Right Ankle -Comparison Exam: X-ray 06/27/2017Technique: Multiplanar and multisequence imaging was performed of the rightankle. T1 and proton density weighted images were acquired without injection ofOmniscan IV.Discussion:Effusion and edema: Moderate tissue edema seen within the lateral aspect of theright ankle. Mild amount of joint effusion. The fibula collateral ligament isnot definitively seen. Note the expected location there is a moderate amount ofedema. These findings are most compatible with a moderate to high-grade tear.Ligaments: The tibiofibular ligaments appear intact. The posterior talofibularligament appears intact. There is a high-grade tear seen within the anteriortalofibular ligament. The fibulocollateral ligament is not definitively seen.At the expected location there is a moderate amount of edema. These findingsare most compatible with a moderate to high-grade tear. Deltoid ligament andspring ligament appear intact.Tendons: Achilles tendon is intact. The tendons within the anterior, medial,and lateral compartments appear intact.Talar dome: 5 mm osteochondral lesion seen within the superior lateral aspectof the talar dome associated with a large amount of abutting cysts bone m arrowedema (4, 12).Plantar fascia: No evidence seen for plantar fasciitis.Sinus tarsi: Sinus tarsi is unremarkable.Impression:1. There is a high-grade tear see n within the anterior talofibular ligament.The fibulocollateral ligament is not definitively seen. At the expectedlocation there is a moderate amount of edema. These findings are mostcompatible with a moderate to high-grade tear.2. 5 mm ost eochondral lesion seen within the superior lateral aspect of thetalar dome assoc iated with a large amount of abutting cysts bone marrow edema.--Read by: Derrick Cruz MDDictated Date/time: 08/31/17 10:49Electronically Signed by: Misael Goodman MD 08/31/1710:58FINAL REPORTUnSalt [facility]
[2020-04-30 07:25] LABS: INR 0.89; PROTHROMBIN TIME 12.5 seconds (11.9-14.5)
[2020-04-30 07:26] LABS: PARTIAL THROMBOPLASTIN TIME 24.8 seconds (23.8-35.5)
[2020-04-30 07:32] LABS: ALBUMIN 4.5 g/dL (3.5-5.0); ALBUMIN/GLOBULIN RATIO 1.2 (0.8-2.0); ANION GAP 15.7 mmol/L (8-16); CALCIUM 9.7 mg/dL (8.4-10.2); CREATININE, SERUM 1.21 mg/dL (0.57-1.11); POTASSIUM 3.7 mmol/L (3.5-5.1)
[2020-04-30 07:38] LABS: CREATINE KINASE MB 1.2 ng/mL (0-5.0)
--- NOTE | 2020-04-30 08:42 | Emergency Department Note ---
History of Present Illnes History of Present Illness Chief Complaint: Abdominal Complaints History of Present Illness This is a 39 year old female Patient c/o right quadrant pain that started approx 4 hours ago. Patient states she ate tacos and tequila last night. C/o nausea at this time. EMS administered 100 mcg fentanyl IV in route. Patient states she has vomited several times. Also states she tested positive for COVID- 19 on April 04 and but has not had symptoms for over 2 weeks. Historian: Patient Arrival Mode: Car Core Inspector Required: No Onset (how long ago): hour(s) (4) Location: RLQ ABDOMEN Quality: PAIN Radiation: Reports non-radiation Severity: severe Onset quality: gradual Timing of current episode: constant Progression: worsening Chronicity: new Context: Denies recent illness Relieving factors: none Exacerbating factors: none Associated symptoms: Reports nausea/vomiting Treatments prior to arrival: none Past Medical/Family History Physician Review I have reviewed the patient's past medical and family history. Any updates have been documented here. Past Medical History Recent Fever: No Clinical Suspicion of Infectio: No New/Unexplained Change in Ment: No Past Medical History: Depression Other Medical History: neuropathy endometriosis Past Surgical History: Hysterectomy Other Surgery: r ankle Social History Smoking Cessation: Never Smoker Counseling Performed: No Alcohol Use: Occasional Any Illegal Drug Use: No TB Exposure/Symptoms: No Physically hurt or threatened: No Family History Family history of heart diseas: No Other Any Pre-Existing Lines (PICC,: No Review of Systems Review of Systems Constitutional: Reports no symptoms EENTM: Reports no symptoms Cardiovascular: Reports no symptoms Respiratory: Reports no symptoms Gastrointestinal: Reports as per HPI, Reports abdominal pain, Reports nausea, Reports vomiting; Denies diarrhea Genitourinary: Reports no symptoms Musculoskeletal: Reports no symptoms Integumentary: Reports no symptoms Neurological: Reports no symptoms Psychological: Reports no symptoms Endocrine: Reports no symptoms Hematological/Lymphatic: Reports no symptoms Physical Exam Related Data Allergies: Coded Allergies: Penicillins (Verified Allergy, Unknown, RASH, 04/30/20) Triage Vital Signs Vital Signs Date Time Temp Pulse Resp B/P (MAP) Pulse Ox O2 Delivery O2 Flow Rate FiO2 04/30/20 06:40 98.1 63 18 132/74 99 Room Air Vital signs reviewed: Yes Physical Exam CONSTITUTIONAL Constitutional: Present well-developed, Present well-nourished HENT HENT: Present normocephalic, Present atraumatic, Present oropharynx clear/moist, Present nose normal HENT L/R: Present left ext ear normal, Present right ext ear normal EYES Eyes: Reports PERRL, Reports conjunctivae normal NECK Neck: Present ROM normal PULMONARY Pulmonary: Present effort normal, Present breath sounds normal CARDIOVASCULAR Cardiovascular: Present regular rhythm, Present heart sounds normal, Present capillary refill normal, Present normal rate GASTROINTESTINAL Abdominal: Present soft, Present bowel sounds normal, Present tender (MODERATE TENDERNESS RLQ WITHOUT R/G); Absent guarding, Absent rebound, Absent left CVA tenderness, Absent right CVA tenderness GENITOURINARY Genitourinary: Present exam deferred SKIN Skin: Present warm, Present dry MUSCULOSKELETAL Musculoskeletal: Present ROM normal NEUROLOGICAL Neurological: Present alert, Present oriented x 3, Present no gross motor or sensory deficits PSYCHOLOGICAL Psychological: Present mood/affect normal, Present judgement normal Results Laboratory Result Diagram: 04/30/20 0653 04/30/20 0653 Laboratory Laboratory Tests Test 04/30/20 06:53 White Blood Count 10.01 x10e3/uL (4.8-10.8) Red Blood Count 4.76 x10e6/uL (3.6-5.1) Hemoglobin 13.7 g/dL (12.0-16.0) Hematocrit 42.5 % (34.2-44.1) Mean Corpuscular Volume 89.3 fL (81-99) Mean Corpuscular Hemoglobin 28.8 pg (28-32) Mean Corpuscular Hemoglobin Concent 32.2 g/dL (31-35) Red Cell Distribution Width 12.9 % (11.7-14.4) Platelet Count 260 x10e3/uL (140-360) Neutrophils (%) (Auto) 81.2 % (38.7-80.0) Lymphocytes (%) (Auto) 13.0 % (18.0-39.1) Monocytes (%) (Auto) 5.0 % (4.4-11.3) Eosinophils (%) (Auto) 0.1 % (0.0-6.0) Basophils (%) (Auto) 0.3 % (0.0-1.0) Neutrophils # (Auto) 8.1 (2.1-6.9) Lymphocytes # (Auto) 1.3 (1.0-3.2) Monocytes # (Auto) 0.5 (0.2-0.8) Eosinophils # (Auto) 0.0 (0.0-0.4) Basophils # (Auto) 0.0 (0.0-0.1) Absolute Immature Granulocyte (auto 0.04 x10e3/uL (0-0.1) Prothrombin Time 12.5 seconds (11.9-14.5) Prothromb Time International Ratio 0.89 Activated Partial Thromboplast Time 24.8 seconds (23.8-35.5) Sodium Level 144 mmol/L (136-145) Potassium Level 3.7 mmol/L (3.5-5.1) Chloride Level 107 mmol/L (98-107) Carbon Dioxide Level 25 mmol/L (22-29) Anion Gap 15.7 mmol/L (8-16) Blood Urea Nitrogen 11 mg/dL (7-26) Creatinine 1.21 mg/dL (0.57-1.11) Estimat Glomerular Filtration Rate 50 ML/MIN (60-) BUN/Creatinine Ratio 9 (6-25) Glucose Level 144 mg/dL (74-118) Calcium Level 9.7 mg/dL (8.4-10.2) Total Bilirubin 0.4 mg/dL (0.2-1.2) Aspartate Amino Transf (AST/SGOT) 35 IU/L (5-34) Alanine Aminotransferase (ALT/SGPT) 70 IU/L (0-55) Alkaline Phosphatase 94 IU/L (40-150) Creatine Kinase 107 IU/L (29-168) Creatine Kinase MB 1.20 ng/mL (0-5.0) Troponin I 0.007 ng/mL (0-0.300) Total Protein 8.3 g/dL (6.5-8.1) Albumin 4.5 g/dL (3.5-5.0) Globulin 3.8 g/dL (2.3-3.5) Albumin/Globulin Ratio 1.2 (0.8-2.0) Lipase 39 U/L (8-78) Lab results reviewed: Yes Imaging Imaging results reviewed: Yes Procedures 12 Lead ECG Interpretation ECG Interpretation : ECG: ECG 1 Core Inspector: Interpreted by ED physician Date: Apr 30, 2020 Time: 06:43 Rhythm: sinus bradycardia Rate: bradycardia (49) QRS axis: normal T wave inversion: III T waves flattening: V2, V3, V4 Clinical Impression: abnormal ECG Assessment & Plan Medical Decision Making MDM 4 HRS OF RLQ ABD PAIN, N/V - CHECK CBC, CHEM'S, UA, CT ABD/PELVIS - R/O EVI ENDICITIS, OVARIAN CYST, URETEROLITHIASIS, UTI, COLITIS, DIVERTICULITIS Reassessment Reassessment PT IMPROVED, WANTS TO GO HOME, DC WITH FLOMAX, STRAINER, TORADOL PO, TYL #3, CEFTIN. F/U UROLOGY Assessment & Plan Final Impression: (1) Ureterolithiasis Depart Disposition: HOME, SELF-CARE Last Vital Signs Date Time Temp Pulse Resp B/P (MAP) Pulse Ox O2 Delivery O2 Flow Rate FiO2 04/30/20 07:15 62 24 126/72 94 Room Air 04/30/20 06:40 98.1 Home Meds No Active Prescriptions or Reported Meds Medications in the ED Morphine Sulfate 4 mg ONCE STAT IV Last administered on 04/30/20at 07:11; Admin Dose 4 MG; Start 04/30/20 at 06:53; Stop 04/30/20 at 06:58; Status DC Ondansetron HCl 4 mg ONCE STAT IV Last administered on 04/30/20at 07:12; Admin Dose 4 MG; Start 04/30/20 at 06:53; Stop 04/30/20 at 06:58; Status DC Sodium Chloride 1,000 ml @ 0 mls/hr Q0M STAT IV Last administered on 04/30/20at 07:12; Admin Dose 1,000 MLS/HR; Start 04/30/20 at 06:53; Stop 04/30/20 at 06:56; Status DC ZAINA SHEN MD Apr 30, 2020 08:42
[2020-04-30 09:13] LABS: CLARITY,URINE SL CLOUDY (CLEAR); COLOR,URINE YELLOW (YELLOW); LEUKOCYTE ESTERASE ,URINE NEGATIVE (NEGATIVE); NITRITE,URINE NEGATIVE (NEGATIVE)
[2020-04-30 09:14] LABS: BILIRUBIN,URINE NEGATIVE (NEGATIVE); KETONES,URINE TRACE (NEGATIVE); PROTEIN,URINE DIPSTICK NEGATIVE (NEGATIVE); URINE UROBILINOGEN 0.2 mg/dL (0.2 - 1)
[2020-04-30 09:21] LABS: BACTERIA,URINE RARE /HPF; EPITHELIAL CELLS,URINE FEW /LPF
--- NOTE | 2020-04-30 11:18 | Diagnostic Imaging Report ---
EXAM: CT Abdomen and Pelvis WITH contrast INDICATION: Right lower quadrant abdominal pain COMPARISON: None. TECHNIQUE: Abdomen and pelvis were scanned utilizing a multidetector helical scanner from the lung base to the pubic symphysis after administration of IV contrast. Coronal and sagittal reformations were obtained. Routine protocol was performed. Scan was performed when during portal venous phase. IV CONTRAST: 100 mL of Isovue 370 ORAL CONTRAST: None COMPLICATIONS: None RADIATION DOSE: Total DLP: 730.72 mGy*cm Estimated effective dose: (DLP x 0.015 x size factor) mSv CTDIvol has been reviewed. It is below the limits set by the Radiation Protocol Committee (RPC). Dose modulation, iterative reconstruction, and/or weight based adjustment of the mA/kV was utilized to reduce the radiation dose to as low as reasonably achievable. FINDINGS: LINES and TUBES: None. LOWER THORAX: Unremarkable HEPATOBILIARY: Diffusely hypodense, compatible hepatic steatosis. No focal hepatic lesions. No biliary ductal dilation. GALLBLADDER: No radio-opaque stones or sludge. No wall thickening. SPLEEN: No splenomegaly. PANCREAS: No focal masses or ductal dilatation. ADRENALS: No adrenal nodules KIDNEYS/URETERS: There is a 4 mm stone in the right ureterovesicular junction (series 2 image 79) with mild hydroureteronephrosis. There is small amount of low density fluid in the right paranephric region extending past midline. The left kidney is normal. GI TRACT: No abnormal distention, wall thickening, or evidence of bowel obstruction. Appendix is normal. PELVIC ORGANS/BLADDER: Unremarkable. LYMPH NODES: No lymphadenopathy. VESSELS: Unremarkable. PERITONEUM / RETROPERITONEUM: Right paranephric fluid as described above. BONES: Unremarkable. SOFT TISSUES: Unremarkable. IMPRESSION: A 4 mm obstructive stone in the right ureterovesical junction (series 2 image 79 with mild right hydroureteronephrosis. Small amount of low density fluid in the right paranephric region extending past midline is suggestive of renal forniceal rupture. Signed by: Jing Gayle MD on 04/30/2020 11:14 AM
[2020-04-30] MEDS ORDERED: CEFTRIAXONE SOD 1 GM/NS 50 ML 50 ML IV ONE (11:30)
[2020-04-30] MEDS ORDERED: KETOROLAC TROMETHAMINE 30 MG/ML VIAL IV STA (11:33)
[2020-04-30] MEDS ORDERED: SODIUM CHLORIDE 0.9% 50ML 50 ML ONE (12:14)
[2020-04-30] MEDS ORDERED: IOPAMIDOL 370 MG/ML 200 ML INFUS..BTL INJ ONE (12:14)
== END 2020-04-30 12:20 | disposition home or self-care (01) ==
LOC: ER 07:07
DX: R10.31 Right lower quadrant pain (principal); N20.1 Calculus of ureter; R11.2 Nausea with vomiting, unspecified
CPT/HCPCS: 36415; 74177; 80053; 81001; 82550; 82553; 83690; 84484; 85025; 85610; 85730; 87040; 87086; 93005; 99284; J0696; J1885; J2270; J2405; J7030; Q9967